=== PATIENT | male | born 1960 | race Caucasian/White ===

== ENCOUNTER 2023-03-15 14:24 | Emergency (ER) | payer OTHER ==
[2023-03-15 17:29] LABS: BASOPHILS ABSOLUTE AUTO 0.03 K/uL (0.00-0.10); BASOPHILS PERCENT AUTO 0.3 % (0.1-1.3); EOSINOPHILS ABSOLUTE AUTO 0.16 K/uL (0.00-0.40); EOSINOPHILS PERCENT AUTO 1.8 % (0.0-5.4); HEMATOCRIT 23.2 % (38.4-49.7); HEMOGLOBIN 7.4 g/dL (12.9-16.9); IMMATURE GRAN ABSOLUTE AUTO 0.11 K/uL (0.00-0.23); IMMATURE GRAN PERCENT AUTO 1.2 % (0.0-0.7); LYMPHOCYTES ABSOLUTE AUTO 1.35 K/uL (0.8-3.3); LYMPHOCYTES PERCENT AUTO 14.9 % (11.4-47.7); MEAN CORPUSCULAR HEMOGLOBIN 33.9 pg (31.6-35.5); MEAN CORPUSCULAR HGB CONC 31.9 g/dL (31.6-35.5); MEAN CORPUSCULAR VOLUME 106.4 fL (81.4-99.0); MONOCYTES ABSOLUTE AUTO 0.67 K/uL (0.20-0.90); MONOCYTES PERCENT AUTO 7.4 % (3.3-12.6); NEUTROPHILS ABSOLUTE AUTO 6.72 K/uL (1.0-7.6); NEUTROPHILS PERCENT AUTO 74.4 % (40.0-78.1); PLATELET COUNT,PLT 207 K/uL (130-375); RED BLOOD CELL COUNT 2.18 M/uL (4.14-5.76)
[2023-03-15 17:33] LABS: CALCIUM 8.6 mg/dL (8.5-10.1); CREATININE 1.1 mg/dL (0.8-1.3); EST CRCL DRUG DOSING (CG) 79.7 mL/min; POTASSIUM,K 3.4 mmol/L (3.6-5.2)
[2023-03-15 17:35] LABS: ANION GAP 11.4 mmol/L (5.0-14.0)
[2023-03-15 17:36] LABS: PROTHROMBIN TIME 10.5 sec (9.2-10.6)
== END 2023-03-15 18:28 | disposition home or self-care (01) ==
LOC: JP.ED 14:24
DX: D50.0 Iron deficiency anemia secondary to blood loss (chronic) (principal); Z79.899 Other long term (current) drug therapy
CPT/HCPCS: 36415; 80048; 85025; 85610; 99284

== ENCOUNTER 2023-05-02 17:40 | Emergency (ER) | payer OTHER | END 2023-05-03 01:49 | disposition home or self-care (01) | LOC: JP.ED 17:40 | DX: D50.0 Iron deficiency anemia secondary to blood loss (chronic) (principal); Z87.891 Personal history of nicotine dependence; Z79.899 Other long term (current) drug therapy | CPT/HCPCS: 36415; 36430; 85018; 86850; 86900; 86901; 86920; 86922; 99283; 99284; P9016 ==

== ENCOUNTER 2023-05-26 07:30 | Day surgery (SDC) | payer OTHER ==
[~2023-05-26 07:30] MED LIST: Midazolam 1 MG/ML 2 ML SDV ONE; Propofol 200 MG/20 ML SDV ONE; fentaNYL 100 MCG/2 ML SDV ONE
[2023-05-26 07:49] LABS: HEMATOCRIT 23.9 % (38.4-49.7); HEMOGLOBIN 7.6 g/dL (12.9-16.9); MEAN CORPUSCULAR HEMOGLOBIN 28.5 pg (31.6-35.5); MEAN CORPUSCULAR HGB CONC 31.8 g/dL (31.6-35.5); MEAN CORPUSCULAR VOLUME 89.5 fL (81.4-99.0); RED BLOOD CELL COUNT 2.67 M/uL (4.14-5.76); WHITE BLOOD CELL COUNT,WBC 5.2 K/uL (3.2-11.0)
[2023-05-26] MEDS: Bupivacaine 0.5% 50 ML MDV ONE ×2 (08:08→09:43)
[2023-05-26] MEDS: Lidocaine 1% with EPINEPHrine 1:100,000 50 ML MDV ONE ×2 (08:09→09:43)
[2023-05-26] MEDS ORDERED: Sodium Chloride 0.9% 1,000 ML IV SCH (08:15)
[2023-05-26] MEDS ORDERED: Linezolid 600 MG in Premix Bag 1 BAG IV ONE (08:15)
[2023-05-26] MEDS ORDERED: Meropenem 500 MG SDV ONE (09:39)
[2023-05-26] MEDS ORDERED: Linezolid 600 MG/300 ML Premix Bag IRR ONE (09:47)
[2023-05-26] MEDS ORDERED: Propofol 200 MG/20 ML SDV ONE (09:49)
== END 2023-05-26 13:05 | disposition home or self-care (01) ==
LOC: JP.SDS 07:30
PROVIDERS: ATTEND Surgery
DX: C76.51 Malignant neoplasm of right lower limb (principal); Z88.8 Allergy status to other drugs, medicaments and biological substances
CPT/HCPCS: 36415; 36430; 36561; 77001; 85027; 86850; 86900; 86901; 86920; 86922; C1788; J1642; J2020; J2185; J2250; J2704; J3010; J3490; J7030; P9016; P9034

== ENCOUNTER 2023-06-25 08:29 | Emergency (ER) | payer OTHER ==
[2023-06-25] MEDS ORDERED: LORazepam 2 MG/ML SDV IVPUSH ONE (08:36)
[2023-06-25] MEDS ORDERED: LORazepam 2 MG/ML SDV ONE (08:37)
[2023-06-25] MEDS ORDERED: Rocuronium 50 MG/5 ML Vial IVPUSH ONE (08:42)
[2023-06-25] MEDS ORDERED: Etomidate 2 MG/ML 10 ML SDV IVPUSH ONE (08:42)
[2023-06-25] MEDS ORDERED: fentaNYL 100 MCG/2 ML SDV ONE (08:51)
[2023-06-25] MEDS ORDERED: Adenosine 6 MG/2 ML SDV ONE (08:51)
[2023-06-25] MEDS: propofoL 100 ML ONE ×2 (09:10→09:30)
[2023-06-25 09:18] LABS: APPEARANCE,URINE CLEAR (CLEAR); BILIRUBIN,URINE NEGATIVE (NEGATIVE); COLOR,URINE YELLOW (YELLOW); GLUCOSE,URINE NEGATIVE (NEGATIVE); KETONES,URINE NEGATIVE (NEGATIVE); LEUKOCYTE ESTERASE,URINE NEGATIVE (NEGATIVE); NITRITE,URINE NEGATIVE (NEGATIVE); OCCULT BLOOD,URINE TRACE-INTACT (NEGATIVE); PH,URINE 5.5 (5.0-8.0); PROTEIN,URINE 100 mg/dL (NEGATIVE); UROBILINOGEN,URINE 0.2 EU/dL (0.2-1.0)
[2023-06-25 09:21] LABS: BASE EXCESS ARTERIAL -13.3 mm/L; METHEMOGLOBIN 1.3 %; O2 SATURATION ARTERIAL 98.7 % (95.0-98.0); OXYHEMOGLOBIN 93.5 %; PCO2 ARTERIAL 33.3 mmHg (35.0-42.0); TOTAL HEMOGLOBIN 5.3 g/dL (13.5-18.0)
[2023-06-25 09:23] LABS: CALCIUM 8.4 mg/dL (8.5-10.1); CREATININE 1.2 mg/dL (0.8-1.3); EST CRCL DRUG DOSING (CG) 51.84 mL/min; MAGNESIUM 2.2 mg/dL (1.8-2.4); POTASSIUM,K 3.7 mmol/L (3.6-5.2)
[2023-06-25 09:24] LABS: ANION GAP 20.7 mmol/L (5.0-14.0)
[2023-06-25 09:29] LABS: AMORPHOUS SEDIMENT,URINE NOT SEEN; BACTERIA,URINE FEW; EPITHELIAL CELLS,URINE RARE; MUCUS,URINE RARE; RBC,URINE 0-5 (0-5); WBC,URINE 0-5 (0-5)
[2023-06-25] MEDS ORDERED: propofoL 100 ML IV SCH (09:30)
[2023-06-25 09:39] LABS: HEMATOCRIT 19.4 % (38.4-49.7); MEAN CORPUSCULAR HEMOGLOBIN 29.4 pg (31.6-35.5); MEAN CORPUSCULAR HGB CONC 30.4 g/dL (31.6-35.5); MEAN CORPUSCULAR VOLUME 96.5 fL (81.4-99.0); PLATELET COUNT,PLT 56 K/uL (130-375); RED BLOOD CELL COUNT 2.01 M/uL (4.14-5.76); WHITE BLOOD CELL COUNT,WBC 17.3 K/uL (3.2-11.0)
[2023-06-25 09:40] LABS: HEMOGLOBIN 5.9 g/dL (12.9-16.9)
[2023-06-25 09:41] LABS: ATYPICAL LYMPHOCYTES FEW; BAND ABSOLUTE MAN 2.08 K/uL; BAND PERCENT MAN 12 % (5-11); EOSINOPHILS ABSOLUTE MAN 0.17 K/uL (0.00-0.40); EOSINOPHILS PERCENT MAN 1 % (2-4); LYMPHOCYTES ABSOLUTE MAN 2.94 K/uL (0.8-3.3); LYMPHOCYTES PERCENT MAN 17 % (24-44); METAMYELOCYTE ABSOLUTE MAN 1.56 K/uL; METAMYELOCYTE PERCENT MAN 9 %; MONOCYTES ABSOLUTE MAN 1.04 K/uL (0.20-0.90); MONOCYTES PERCENT MAN 6 % (2-6); NEUTROPHILS ABSOLUTE MAN 9.52 K/uL (1.0-7.6); NRBC MANUAL 3; SEG NEUTROPHILS PERCENT MAN 55 % (36-66)
[2023-06-25 09:42] LABS: ANISOCYTOSIS MODERATE
[2023-06-25] MEDS ORDERED: fentaNYL 100 MCG/2 ML SDV IVPUSH ONE (09:45)
[2023-06-25 09:55] LABS: CORONAVIRUS COVID-19 NAA NEGATIVE (NEGATIVE); INFLUENZA A NAA NEGATIVE (NEGATIVE); INFLUENZA B NAA NEGATIVE (NEGATIVE); RESPIRATORY SYNCYTIAL VIR NAA NEGATIVE (NEGATIVE)
[2023-06-25] MEDS ORDERED: Norepinephrine Bit/D5W Premix 4 MG in Premix Bag 1 BAG IV SCH ×4 (10:00)
[2023-06-25] MEDS ORDERED: Sodium Chloride 0.9% 1,000 ML IV ONE (10:05)
[2023-06-25] MEDS ORDERED: Sodium Chloride 0.9% 1,000 ML IV SCH (10:15)
== END 2023-06-25 10:35 | disposition other institution (70) ==
LOC: JP.ED 08:29
DX: J96.01 Acute respiratory failure with hypoxia (principal); Z88.8 Allergy status to other drugs, medicaments and biological substances; Z79.899 Other long term (current) drug therapy; Z20.822 Contact with and (suspected) exposure to COVID-19
CPT/HCPCS: 0241U; 31500; 36415; 36430; 36600; 43752; 51702; 71045; 71045-26; 80048; 81001; 82803; 83735; 84484; 85025; 86850; 86900; 86901; 86920; 86922; 93005; 93010; 96361; 96365; 96375; 99285; 99285-25; J2060; J2704; J3010; J3490; J7030; P9016